=== PATIENT | male | born 1950 | race Caucasian/White ===

== ENCOUNTER → 2016-08-27 | Outpatient (RCR) ==
[2015-11-08 13:32] VITALS: BMI 26.7
--- NOTE | 2016-08-09 10:19 | RS.OPPTEV2 ---
Date of Note: 08/08/16 Visit #: 1 Date of Evaluation: 08/08/16 Payer Source: MEDICARE Treatment Diagnosis: LE weakness, s/p recent CVA History of Condition/Mechanism of Injury:: Patient reports having a stroke on 12/11. Patient's states they were eating at [employer] when she saw the patient walking back from the bathroom and looked off balance and she could see that he had facial drooping on the left. Reports he ended up with full weakness of the left arm and leg. States he received the TPA injection in the ER. states she could see his facial weakness start to resolve within 15 minutes of receiving the injection. Reports most of left sided weakness has improved. Prior Level of Function.....Patient was independent with: ADL's, Self Care, Caregiving, Ambulation/Mobility, Community Integration/Access Functional Limitations: Ambulation Current Subjective/complaints:: Patient reports feeling that all his symptoms from the stroke has resolved. States he is unsure how much therapy he needs. States he can tell his endurance is less than it was before the stroke. States he has not fallen since the stroke. Reports falling the night before the stroke. His states Mr. Quiñones stays in bed alot anyway. States he suffers from Bipolar Depression. Patient denies any problems with swallowing. His states his speech may be slightly slurred at times, but states it may have already been a little slurred before the CVA. 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 Functional Outcome Measure Tinetti: 20 (=28.6% impairment) - G Codes & Severity Modifier G Codes & Modifier: Mobility current CJ. Mobility goal CH Source of G Code score: Tinetti Assessment Observation - Observation Posture: Forward Head, Rounded Shoulders, Decreased Lumbar Lordosis Gait - Gait Pattern Gait Comments: Patient ambulates with an assistive device, independently. He demonstrates minimal reciprocal arm swing, and decreased deceleration of the quads during swing phase on the left LE. General Range of Motion: Bilateral AROM is WFL's throughout bilateral UE's and LE's. Muscle Strength: Bilateral UE strength is 4+ to 5/5 throughout. Left ankle 4-/ 5 throughout, Right ankle 4 to 4+/5. Left quads 4/5. All else of bilateral LE's 4+/5. Trunk strength 4/5. Processing Mgr Strength Left Hand Processing Mgr Strength: 35 lbs. Right Hand Processing Mgr Strength: 42 lbs. Dynamometer Testing Position: 2nd Position Sensation - Sensation Right Upper Extremity: Intact/Normal Left Upper Extremity: Intact/Normal Right Lower Extremity: Intact/Normal Left Lower Extremity: Intact/Normal Balance - Sitting Balance Static Sitting Balance: Normal Dynamic Sitting Balance: Normal - Standing Balance Static Standing Balance: Good Dynamic Standing Balance: Good - Comments Balance Assessment Comments: Demonstrates slight unsteadiness with eyes closed in standing, but no significant sway. Coordination - Tests Bilateral Finger to Nose: Normal/Intact Heel to Dorsey: Normal/Intact Toe Tapping: Normal/Intact Additional Comments: Additional Comments: Bilateral SLR 35-40 degrees bilaterally. Interventions - Exercise/Activities/Manual Therapy Exercises/Activities: Patient instructed in SLR, briding, and wall slides for HEP. Manual Therapy: NA HOME EXERCISE PROGRAM: SLR, briding, and wall slides - Charges Total Direct Minutes: 48 mins Total Treatment Time: 48 mins Procedures billed for this date of service:: EVAL Medium complexity Assessment Assessment: Patient presents approximately one week following a CVA. A majority of his symptoms have resolved from the patient and 's subjective reports. He demonstrates mild weakness of the left knee and ankle. He demonstrates some gait deviations and presents to be a moderate risk for falls per Tinetti Assessment. He exhibits good potential to benefit from a few weeks of strengthening exercises and education of a HEP to progress after completing therapy to return him to his previous level of function and decrease his risk for falls. Patient Education: Education of diagnosis, Body/Joint mechanics, Home Exercise Program, Home Safety, Activity Modification, Education of Plan of Care Rehab Potential: Good Short Term Goals Goal #1: Patient independent and compliant with basic HEP. Goal to be met by: 08/18/16 Goal #2: Left quad strength 4+/5. Goal to be met by: 08/18/16 Goal #3: Left ankle strength 4+/5. Goal to be met by: 08/18/16 Brick Cleaner Goals Goal #1: Patient to exhibit minimal risk for falls per Tinetti Assessment. Goal to be met by: 08/29/16 Goal #2: Pt amb. community distances with minimal gait deviations and good safety. Goal to be met by: 08/29/16 Goal #3: Patient to demonstrate good safety awarenes with all mobility. Goal to be met by: 08/29/16 Plan - Treatment to be Provided Procedures: Therapeutic Exercises, Therapeutic Activity, Gait Training, Neuromuscular Rehab, Patient Education Modalities: No Modalities - Treatment Plan Frequency: 2 X week Duration: 2-3 Weeks ORDER # VISITS AND/OR THROUGH DATE: 08/29/16 - Treatment Code (1) Leg weakness Qualifiers: Laterality: left Qualified Description: Weakness of left lower extremity Qualifier Code(s): (M62.81) Muscle weakness (generalized) (2) Weakness status post cerebrovascular accident Comments: I69.398
--- NOTE | 2016-08-14 13:39 | RS.OPPTDN ---
Subjective Date of Note: 08/14/16 Visit #: 3 Date of Evaluation: 08/08/16 Payer Source: MEDICARE Treatment Diagnosis: LE weakness, s/p recent CVA Current Subjective/complaints:: Patient denies any dizziness or unsteadiness today. He says he did well with therex last week. Reports he was able to try HEP without difficulty. Pain Assessment - Pain Description Pain Location: none Interventions - Exercise/Activities/Manual Therapy Exercises/Activities: Patient begins with passive stretching to SKTC, HS, Trunk rotation, and heel cords bilaterally x 3. Patient performs general LE/trunk strengthening: QS, SAQ 2#, SLR, Ball squeezes, isometric hip flexion/abd, Bridging, Alt UE/LE lift with 2# wand and 2# at LE's, Ham curls/DF with red tband. Hooklying hip abd with red tband /10. Sitting: red tband for scap retraction using therapy stick 09/06. Continued stationary bike x 5.5 mins for/ retro. Cues given for changing position. Total minutes of Exercise: 38 Manual Therapy: NA HOME EXERCISE PROGRAM: SLR, briding, and wall slides - Charges Total Direct Minutes: 38 Total Treatment Time: 38 Procedures billed for this date of service:: ex3 Assessment: Patient wild all therex well. He demo weakness to the L LE that should benefit from continued strengthening and recipricol exercises. Patient Education: Education of diagnosis, Body/Joint mechanics, Home Exercise Program, Home Safety, Activity Modification, Education of Plan of Care Patient demonstrates compliance with HEP?: Yes Short Term Goals Goal #1: Patient independent and compliant with basic HEP. Goal to be met by: 08/18/16 Progress towards Goal:: Progressing Goal #2: Left quad strength 4+/5. Goal to be met by: 08/18/16 Goal #3: Left ankle strength 4+/5. Goal to be met by: 08/18/16 Metal Organ Pipe Maker Goals Goal #1: Patient to exhibit minimal risk for falls per Tinetti Assessment. Goal to be met by: 08/29/16 Goal #2: Pt amb. community distances with minimal gait deviations and good safety. Goal to be met by: 08/29/16 Goal #3: Patient to demonstrate good safety awarenes with all mobility. Goal to be met by: 02/02/17 Plan PLAN OF CARE EXPIRES ON:: 08/29/16 ORDER # VISITS AND/OR THROUGH DATE: 08/29/16 PLAN: Progress Exercises
--- NOTE | 2016-08-14 14:00 | RS.OPPTDN ---
Subjective Date of Note: 08/09/16 Visit #: 2 Date of Evaluation: 08/08/16 Payer Source: MEDICARE Treatment Diagnosis: LE weakness, s/p recent CVA Current Subjective/complaints:: Patient denies dizziness or unsteadiness today. He says he notices weakness to the L LE. Reports he anticipates beginning a membership to local gym for further strengthening. Pain Assessment - Pain Description Pain Location: none Interventions - Exercise/Activities/Manual Therapy Exercises/Activities: He begins with passive stretching of SKTC, HS, heel cords , and trunk rotation x 3 bilaterally. Patient performs general LE/trunk strengthening: QS, SAQ 2#, SLR, Ball squeezes, isometric hip flexion/abd, Bridging, Alt UE/LE lift with 2# wand and 2# at LE's, Ham curls/DF with red tband. All 2/10 reps. Sits for Red tband for scap retraction, shoulder shrugs. Began stationary bike x 4 mins for/retro. Cues given for changing position. Total minutes of Exercise: 38 Manual Therapy: NA HOME EXERCISE PROGRAM: SLR, briding, and wall slides - Charges Total Direct Minutes: 38 Total Treatment Time: 38 Procedures billed for this date of service:: ex3 Short Term Goals Goal #1: Patient independent and compliant with basic HEP. Goal to be met by: 08/18/16 Goal #2: Left quad strength 4+/5. Goal to be met by: 08/18/16 Goal #3: Left ankle strength 4+/5. Goal to be met by: 08/18/16 Safety Analyst Goals Goal #1: Patient to exhibit minimal risk for falls per Tinetti Assessment. Goal to be met by: 08/29/16 Goal #2: Pt amb. community distances with minimal gait deviations and good safety. Goal to be met by: 08/29/16 Goal #3: Patient to demonstrate good safety awarenes with all mobility. Goal to be met by: 08/29/16 Plan PLAN OF CARE EXPIRES ON:: 08/29/16 ORDER # VISITS AND/OR THROUGH DATE: 08/29/16
--- NOTE | 2016-08-16 12:19 | RS.OPPTDN ---
Subjective Date of Note: 08/16/16 Visit #: 4 Date of Evaluation: 08/08/16 Payer Source: MEDICARE Treatment Diagnosis: LE weakness, s/p recent CVA Current Subjective/complaints:: Patient recalls no soreness from therex last session. He says he is "getting along well." Denies any falls since beginning PT. He is agreeable to any exercise/activity. Pain Assessment - Pain Description Pain Location: none Interventions - Exercise/Activities/Manual Therapy Exercises/Activities: He begins with passive stretching of SKTC, HS, heel cords , and trunk rotation x 3 bilaterally. Patient performs general LE/trunk strengthening: QS, SAQ 2#, SLR, Ball squeezes, isometric hip flexion/abd, Bridging, Alt UE/LE lift with 2# wand and 2# at LE's, Ham curls/DF with red tband. All 2/10 reps. Sits for Red tband for scap retraction, shoulder shrugs. LAQ 2#, hip flexion 2# x 15 alternating. Began stationary bike x 7 mins for/retro. Total minutes of Exercise: 38 Manual Therapy: NA HOME EXERCISE PROGRAM: SLR, briding, and wall slides - Charges Total Direct Minutes: 38 Total Treatment Time: 38 Procedures billed for this date of service:: ex3 Assessment: Patient performs all therex without difficulty. He continues to show mod tightness to the L HS and heel cords, but less noticable weakness to the L LE. He is showing improvement with wild to progressing therex. Patient Education: Education of diagnosis, Body/Joint mechanics, Home Exercise Program, Home Safety, Activity Modification, Education of Plan of Care Patient demonstrates compliance with HEP?: Yes Short Term Goals Goal #1: Patient independent and compliant with basic HEP. Goal to be met by: 08/18/16 Progress towards Goal:: Progressing Goal #2: Left quad strength 4+/5. Goal to be met by: 08/18/16 Progress towards Goal:: Progressing Goal #3: Left ankle strength 4+/5. Goal to be met by: 08/18/16 Progress towards Goal:: Progressing Halfway Goals Goal #1: Patient to exhibit minimal risk for falls per Tinetti Assessment. Goal to be met by: 08/29/16 Goal #2: Pt amb. community distances with minimal gait deviations and good safety. Goal to be met by: 08/29/16 Goal #3: Patient to demonstrate good safety awarenes with all mobility. Goal to be met by: 08/29/16 Plan PLAN OF CARE EXPIRES ON:: 08/29/16 ORDER # VISITS AND/OR THROUGH DATE: 08/29/16 PLAN: Progress Exercises
--- NOTE | 2016-08-22 15:37 | RS.OPPTDN ---
Subjective Date of Note: 08/22/16 Visit #: 6 Date of Evaluation: 08/08/16 Payer Source: MEDICARE Treatment Diagnosis: LE weakness, s/p recent CVA Current Subjective/complaints:: Patient jokingly says he feels he is "back to my abnormal." Denies having any dizziness or unsteadiness today. He says he is walking fine. Pain Assessment - Pain Description Pain Location: none Current Pain Intensity: 0 Interventions - Exercise/Activities/Manual Therapy Exercises/Activities: He begins with stationary bike x 9 mins for/retro. Passive stretching of SKTC, HS, heel cords, and trunk rotation x 3 bilaterally. Patient performs general LE/trunk strengthening: QS, SAQ 2#, SLR, Ball squeezes, isometric hip flexion/abd, Bridging, Bilateral LE raise with 2 1/2 # each leg 2/10, Alt UE/LE lift with 3# wand and 2# at LE's, Ham curls/DF with green tband. All 2/10 reps. Sits for Red tband for scap retraction, shoulder shrugs. LAQ 2#, hip flexion 2# x 15 alternating. Standing for heel raises, marching, and weight shifting on therapy foam x 10. Shelf reaching with 3# wand trunk to overhead x 10. Sidestepping at railing. Total minutes of Exercise: 48 Manual Therapy: NA HOME EXERCISE PROGRAM: SLR, briding, and wall slides - Charges Total Direct Minutes: 48 Total Treatment Time: 48 Procedures billed for this date of service:: ex3 Assessment: Patient demo increased flexibility to the LE's and progressing with all therex well. He denies and does not show any signs of LOB with dynamic exercises and appears to be performing HEP well. Patient Education: Education of diagnosis, Body/Joint mechanics, Home Exercise Program, Home Safety, Activity Modification, Education of Plan of Care Patient demonstrates compliance with HEP?: Yes Short Term Goals Goal #1: Patient independent and compliant with basic HEP. Goal to be met by: 08/18/16 Progress towards Goal:: Progressing Goal #2: Left quad strength 4+/5. Goal to be met by: 08/18/16 Progress towards Goal:: Progressing Goal #3: Left ankle strength 4+/5. Goal to be met by: 08/18/16 Progress towards Goal:: Progressing [facility] Goals Goal #1: Patient to exhibit minimal risk for falls per Tinetti Assessment. Goal to be met by: 08/29/16 Goal #2: Pt amb. community distances with minimal gait deviations and good safety. Goal to be met by: 08/29/16 Goal #3: Patient to demonstrate good safety awarenes with all mobility. Goal to be met by: 08/29/16 Plan PLAN OF CARE EXPIRES ON:: 08/29/16 ORDER # VISITS AND/OR THROUGH DATE: 08/29/16 PLAN: Progress Exercises
--- NOTE | 2016-08-22 16:25 | RS.OPPTDN ---
Subjective Date of Note: 08/20/16 Visit #: 5 Date of Evaluation: 08/08/16 Payer Source: MEDICARE Treatment Diagnosis: LE weakness, s/p recent CVA Current Subjective/complaints:: No c/o's. States he is performing HEP. Pain Assessment - Pain Description Pain Location: none Interventions - Exercise/Activities/Manual Therapy Exercises/Activities: He begins with passive stretching of SKTC, HS, heel cords , and trunk rotation x 3 bilaterally. Patient performs general LE/trunk strengthening: QS, SAQ 2 1/2#, SLR, Ball squeezes, isometric hip flexion/abd, Bridging, Alt UE/LE lift with 3# wand and 2 1/2# at LE's, Ham curls/DF with green tband. All 2/10 reps. Sits for Red tband for scap retraction, shoulder shrugs. Standing: sidestepping, marching at rail, heel raises, step ups and mini squats on blue foam, Ends with stationary bike x 7 mins for/retro. Total minutes of Exercise: 45 Manual Therapy: NA HOME EXERCISE PROGRAM: SLR, briding, and wall slides - Charges Total Direct Minutes: 45 Total Treatment Time: 45 Procedures billed for this date of service:: ex3 Assessment: Progressing well with all increasing therex. Maintains slow, but steady gait. Patient Education: Education of diagnosis, Body/Joint mechanics, Home Exercise Program, Home Safety, Activity Modification, Education of Plan of Care Patient demonstrates compliance with HEP?: Yes Short Term Goals Goal #1: Patient independent and compliant with basic HEP. Goal to be met by: 08/18/16 Progress towards Goal:: Progressing Goal #2: Left quad strength 4+/5. Goal to be met by: 08/18/16 Progress towards Goal:: Progressing Goal #3: Left ankle strength 4+/5. Goal to be met by: 08/18/16 Progress towards Goal:: Progressing Superintendent Of Schools Goals Goal #1: Patient to exhibit minimal risk for falls per Tinetti Assessment. Goal to be met by: 08/29/16 Goal #2: Pt amb. community distances with minimal gait deviations and good safety. Goal to be met by: 08/29/16 Goal #3: Patient to demonstrate good safety awarenes with all mobility. Goal to be met by: 08/29/16 Plan PLAN OF CARE EXPIRES ON:: 08/29/16 ORDER # VISITS AND/OR THROUGH DATE: 08/29/16 PLAN: Progress Exercises
--- NOTE | 2016-08-27 15:22 | RS.OPPTDN ---
Subjective Date of Note: 08/27/16 Visit #: 7 Date of Evaluation: 08/08/16 Payer Source: MEDICARE Treatment Diagnosis: LE weakness, s/p recent CVA Current Subjective/complaints:: Patient offers no c/o's. Says he is doing well without any LOB or falls since PT began. He says he babysitted his twin grand- daughters over the weekend. Says he hasn't performed HEP as much as he should. Pain Assessment - Pain Description Pain Location: none Current Pain Intensity: 0 Interventions - Exercise/Activities/Manual Therapy Exercises/Activities: He begins with stationary bike x 9 mins for/retro. Patient rec's passive stretching of SKTC, HS, heel cords, and trunk rotation x 3 bilaterally. Patient performs general LE/trunk strengthening: QS, SAQ progressed to 3#, SLR, Ball squeezes, isometric hip flexion/abd, Bridging, Alt UE/LE lift with 3# wand and 3 # at LE's, Ham curls/DF with green tband. All 2/ 10 reps. Sits for green tband for scap retraction, shoulder shrugs. Standing: sidestepping, marching at rail, heel raises, step ups and mini squats on blue foam. Total minutes of Exercise: 45 Manual Therapy: NA HOME EXERCISE PROGRAM: SLR, briding, and wall slides - Charges Total Direct Minutes: 45 Total Treatment Time: 45 Procedures billed for this date of service:: ex3 Assessment: Patient continues to do well with all progressive therex. He demo' s tremors, more to the R UE during many of his exercises (related to Parkinson's ). No LOB noted with dynamic exercises. Patient Education: Education of diagnosis, Body/Joint mechanics, Home Exercise Program, Home Safety, Activity Modification, Education of Plan of Care Patient demonstrates compliance with HEP?: Yes Short Term Goals Goal #1: Patient independent and compliant with basic HEP. Goal to be met by: 08/18/16 Progress towards Goal:: Progressing Goal #2: Left quad strength 4+/5. Goal to be met by: 08/18/16 Progress towards Goal:: Progressing Goal #3: Left ankle strength 4+/5. Goal to be met by: 08/18/16 Progress towards Goal:: Progressing [facility] Goals Goal #1: Patient to exhibit minimal risk for falls per Tinetti Assessment. Goal to be met by: 08/29/16 Progress towards goal: Progressing Goal #2: Pt amb. community distances with minimal gait deviations and good safety. Goal to be met by: 08/29/16 Progress towards goal: Progressing Goal #3: Patient to demonstrate good safety awarenes with all mobility. Goal to be met by: 08/29/16 Progress towards goal: Progressing Plan PLAN OF CARE EXPIRES ON:: 08/29/16 ORDER # VISITS AND/OR THROUGH DATE: 08/29/16 PLAN: Progress Exercises (Patient may discontinue after this week as he is very pleased with progress at this point.)
== END ==
PROVIDERS: ATTEND Psychiatry & Neurology Neurology
DX: I63.429 Cerebral infarction due to embolism of unspecified anterior cerebral artery (principal)

== ENCOUNTER 2016-08-29 13:23 | Outpatient (RCR) ==
[2015-11-08 13:32] VITALS: BMI 26.7
--- NOTE | 2016-08-29 14:31 | RS.OPPTDN ---
Subjective Date of Note: 08/29/16 Visit #: 8 Date of Evaluation: 08/08/16 Payer Source: MEDICARE Treatment Diagnosis: LE weakness, s/p recent CVA Current Subjective/complaints:: Patient offers no c/o's. Says he is doing well , but forgets to do HEP. His plans are to begin exercise at a local gym following his final appt next week. Pain Assessment - Pain Description Pain Location: none Current Pain Intensity: 0 Interventions - Exercise/Activities/Manual Therapy Exercises/Activities: Patient rec's passive stretching of SKTC, HS, heel cords, and trunk rotation x 3 bilaterally. Patient performs general LE/trunk strengthening: QS, SAQ progressed to 3#, SLR, Ball squeezes, isometric hip flexion/abd, Bridging, Alt UE/LE lift with 3# wand and 3 # at LE's, Ham curls/ DF with green tband. All 2/10 reps. Sits for green tband for scap retraction, shoulder shrugs. Standing: sidestepping x 2 at railing, marching, weight shift and heel raises on thick foam pad x 10. Total minutes of Exercise: 40 Manual Therapy: NA HOME EXERCISE PROGRAM: SLR, briding, and wall slides - Charges Total Direct Minutes: 40 Total Treatment Time: 40 Procedures billed for this date of service:: ex3 Assessment: Patient performing all advancing therex well. He is maintaining bal with all activity on modified surfaces. Trunk stability progressing and demo increased flexibility with HS bilaterally and general strengthening to bilateral LE. Patient Education: Education of diagnosis, Body/Joint mechanics, Home Exercise Program, Home Safety, Activity Modification, Education of Plan of Care Patient demonstrates compliance with HEP?: Yes Short Term Goals Goal #1: Patient independent and compliant with basic HEP. Goal to be met by: 08/18/16 Progress towards Goal:: Progressing Goal #2: Left quad strength 4+/5. Goal to be met by: 08/18/16 Progress towards Goal:: Progressing Goal #3: Left ankle strength 4+/5. Goal to be met by: 08/18/16 Progress towards Goal:: Progressing Care Home Goals Goal #1: Patient to exhibit minimal risk for falls per Tinetti Assessment. Goal to be met by: 09/04/16 Progress towards goal: Progressing Goal #2: Pt amb. community distances with minimal gait deviations and good safety. Goal to be met by: 09/04/16 Progress towards goal: Progressing Goal #3: Patient to demonstrate good safety awarenes with all mobility. Goal to be met by: 09/04/16 Progress towards goal: Progressing Plan PLAN OF CARE EXPIRES ON:: 09/04/16 ORDER # VISITS AND/OR THROUGH DATE: 09/04/16 PLAN: Plan for Discharge (LTG date moved from 08/29/16 to the following Friday to complete order per patient.)
--- NOTE | 2016-09-04 14:21 | RS.CSNOTE ---
PT Case Note Date of Note: 09/04/16 Title of document: Case Note Note: Patient has attended 8 visits. He has verbalized improvement with strength and admitted feeling "back to his old self." He has been performing some HEP and is making plans to join a local gym. He has improved with Tinetti' s Assessment from to or 14% impairment and demonstrates improved junior project coordinator by average 3 to 5#. He has demonstrated increased wild for progressive therex. His HEP was advanced today and D/c is anticipated. No charges this date.
--- NOTE | 2016-10-08 11:32 | RS.OPPTDC ---
Date of Discharge: 09/04/16 Date of Evaluation: 08/08/16 Number of Visits: 8 Treatment Diagnosis: LE weakness, s/p recent CVA Current Complaints/Gains: Pt is very pleased with his PT experience and states he is back to his "old self". He feels his gait and strength are back to normal. Pain Assessment - Pain Description Pain Location: none Current Pain Intensity: 0 Functional Outcome Measure Tinetti: 24 - G Codes & Severity Modifier G Codes & Modifier: Mobility: Goal: CH. DC Status: CI Source of G Code score: Tinetti Interventions - Exercise/Activities/Manual Therapy Exercises/Activities: na Manual Therapy: NA HOME EXERCISE PROGRAM: -- - Charges Total Direct Minutes: na Total Treatment Time: na Procedures billed for this date of service:: na Assessment Assessment: All goals are progressing but not met yet. He is independent with HEP and wishes to be DC'd. Short Term Goals Goal #1: Patient independent and compliant with basic HEP. Goal to be met by: 08/18/16 Progress towards Goal:: Progressing Goal #2: Left quad strength 4+/5. Goal to be met by: 08/18/16 Progress towards Goal:: Progressing Goal #3: Left ankle strength 4+/5. Goal to be met by: 08/18/16 Progress towards Goal:: Progressing Long-Term Goals Goal #1: Patient to exhibit minimal risk for falls per Tinetti Assessment. Goal to be met by: 09/04/16 Progress towards goal: Progressing Goal #2: Pt amb. community distances with minimal gait deviations and good safety. Goal to be met by: 09/04/16 Progress towards goal: Progressing Goal #3: Patient to demonstrate good safety awarenes with all mobility. Goal to be met by: 09/04/16 Progress towards goal: Progressing Plan Reason for Discharge:: Self-Discharge
== END 2016-09-24 ==
PROVIDERS: ATTEND Psychiatry & Neurology Neurology
DX: I63.9 Cerebral infarction, unspecified (principal)

== ENCOUNTER 2017-04-07 13:56 | Outpatient (CLI) ==
[2015-11-08 13:32] VITALS: BMI 26.7
--- NOTE | 2017-04-07 15:04 | DI ---
EXAM: Radiographs, right foot HISTORY: Right foot pain. COMPARISON: None available. TECHNIQUE: Three views. FINDINGS: Mildly displaced intra-articular fractures seen at the medial base of the second middle ph alanx. Similar appearing mildly displaced intra-articular fracture seen at the base of the third pro ximal phalanx. Moderate osteoarthritic changes present. No dislocation identified. IMPRESSION: Mildly displaced intra-articular fractures of the bases of the second middle and third proximal phala nges.
== END 2017-04-07 13:57 | disposition home or self-care (01) ==
LOC: RAD 13:56
PROVIDERS: ATTEND Family Medicine
DX: M79.671 Pain in right foot (principal)